=== PATIENT | male | born 1985 | race Caucasian/White ===

== ENCOUNTER 2017-02-06 17:05 | Emergency (ER) | payer OTHER ==
--- NOTE | ~2017-02-06 | EKG ---
PATIENT: NAMITA GANDARA UNIT #: [id number] Ventricular Rate: 74 BPM Atrial Rate: 74 BPM P-R Interval: 146 ms QRS Duration: 88 ms Q-T Interval: 352 ms QTC Calculation(Bezet): 390 ms P [facility]: 73 degrees Calculated R [facility]: 37 degrees Calculated T [facility]: 39 degrees Diagnosis Line: Normal sinus rhythm Diagnosis Line: Normal ECG Diagnosis Line: Diagnosis Line: Confirmed by ARIC VU MD ([id number]) on 02/10/2017 Diagnosis Line: 9:32:29 AM INTERPRETING MD: HORACE HOANG
--- NOTE | ~2017-02-06 | CR72 ---
[facility] A Service of [facility] RADIOLOGY TEXT RESULTS PATIENT: NAMITA GANDARA LOCATION: SED : 89 UNIT #: [id number] AGE: [address]: Anastacio Ruggiero MD SEX: M ORDER DR: [id number] [place] [id number] E MR#: [id number] Acc #: [id number] NAME: NAMITA GANDARA : 1985 SEX: M STUDY DATE/TIME: 02/06/2017 16:40 UNIT: SED ROOM: STUDY DESCRIPTION: CR Chest Single View Portable Attending Physician: Anastacio Ruggiero M.D. Ordering Physician: Anastacio Ruggiero M.D. Primary Care Physician: No Primary Care Physician MEDICAL IMAGING REPORT This report is preliminary unless electronic signature is present. EXAM Portable chest. DATE OF EXAM 02/06/2017 HISTORY Chest pain for 2 days, worsening today. Pain in center of chest. FINDINGS A single AP portable view of the chest shows both lungs to be clear. The heart is normal in size. The mediastinal contour is normal. No significant bone abnormalities are seen. IMPRESSION Normal portable chest. Dictated by... Kanu Godfrey M.D. THIS IS AN ELECTRONICALLY VERIFIED REPORT Kanu Godfrey M.D. at 02/07/2017 3:16 PM HANK/deidre TD: 02/06/2017 20:52 JOB #: [id number] MEDICAL IMAGING REPORT [facility] A Service of [facility] RADIOLOGY TEXT RESULTS PATIENT: NAMITA GANDARA LOCATION: SED : 89 UNIT #: [id number] AGE: [address]: Anastacio Ruggiero MD SEX: M ORDER DR: Page 1 of 1
[2017-02-06 16:57] LABS: POC - CKMB <1.0 ng/mL (0.0-7.9); POC - TROPONIN <0.05 ng/mL (<=0.05)
[2017-02-06 16:57] LABS: BASOPHIL# 0.1 X10e3 (0-0.3); BASOPHIL% 0.6 % (0-2.5); EOSINOPHIL# 0.4 X10e3 (0-0.7); EOSINOPHIL% 4.2 % (0.0-7.0); HEMATOCRIT 42.9 % (38.0-50.0); HEMOGLOBIN 14.7 gm/dL (13.0-16.0); LYMPHOCYTE# 3.2 X10e3 (1.0-3.5); LYMPHOCYTE% 31.9 % (17.0-45.0); MEAN CELL VOLUME 88.2 FL (83-96); MEAN CORPUSCULAR HEMOGLOBIN 30.2 PG (28-34); MEAN CORPUSCULAR HGB CONC 34.3 g/dL (30-36); MEAN PLATELET VOLUME 8.5 FL (6.5-11.5); MONOCYTE% 9.6 % (3.0-12.0); NEUTROPHIL# 5.5 X10e3 (1.5-7.1); NEUTROPHIL% 53.7 % (40-75); PLATELET COUNT 190 X10e3 (140-420); RED BLOOD COUNT 4.86 X10e (3.90-5.60); RED CELL DISTRIBUTION WIDTH 13.5 % (11.0-15.5); WHITE BLOOD COUNT 10.1 X10e3 (4.0-10.5)
[2017-02-06 16:59] LABS: INR 1.1; PROTHROMBIN TIME (PATIENT) 12.8 SECONDS (9.5-12.4)
[2017-02-06 17:04] LABS: DIFF IND NO
[~2017-02-06 17:05] MED LIST: ALBUTEROL17 GM INH; LEXAPRO; NO MEDICATIONS
[2017-02-06 17:07] LABS: ALBUMIN SERUM 3.7 g/dL (3.5-5.0); BILIRUBIN, DIRECT 0.1 mg/dL (0.0-0.2); BILIRUBIN,INDIRECT 0.1 mg/dL (0.0-0.9); BILIRUBIN,TOTAL 0.2 mg/dL (0.2-2.0); BUN/CREATININE RATIO 12.5; CALCIUM SERUM 8.8 mg/dL (8.4-10.2); CREATININE SERUM 0.8 mg/dL (0.6-1.4); GLOM FILT RATE Estimated 119.9 mL/min (>60); PARTIAL THROMBOPLASTIN TIME 33.8 SECONDS (25.6-38.1); POTASSIUM 3.6 mmol/L (3.5-5.1); PROTEIN TOTAL SERUM 6.7 g/dL (6.0-8.3)
== END 2017-02-06 18:38 | disposition home or self-care (01) ==
LOC: SED 17:05
PROVIDERS: Emergency Medicine
DX: R07.89 Other chest pain (principal); F17.200 Nicotine dependence, unspecified, uncomplicated; Z88.5 Allergy status to narcotic agent
CPT/HCPCS: 36415; 71010; 80048; 80076; 82553; 84484; 85025; 85610; 85730; 93005; 96374; 99284; J1885